=== PATIENT | male | born 1945 | race Caucasian/White ===

== ENCOUNTER 2018-07-09 12:25 | Inpatient (IN) | payer MEDICARE, MEDICAID ==
[~2018-07-09] VITALS: Ht 182.2 cm; Wt 100.8 kg
[2018-07-09 13:14] LABS: HEMATOCRIT 36.5 % (42.0-52.0); HEMOGLOBIN 11.8 g/dl (14.0-17.9); MEAN CORPUSCULAR HEMOGLOBIN 25.9 PG (27.0-31.0); MEAN CORPUSCULAR HGB CONC 32.3 % (33.0-36.5); MEAN PLATELET VOLUME 7.4 FL (7.4-10.4); PLATELET COUNT 305 X10'3 (140-440); RED BLOOD COUNT 4.56 X10'6 (4.70-6.10); RED CELL DISTRIBUTION WIDTH 17.4 % (11.5-14.5)
[2018-07-09 13:26] LABS: ALANINE AMINOTRANSFERASE 23 U/L (12-78); ALBUMIN 3.3 G/DL (3.4-5.0); ALBUMIN/GLOBULIN RATIO 0.9 (1.1-1.5); ALKALINE PHOSPHATASE 68 IU/L (46-116); ANION GAP 9 (8-16); ASPARTATE AMINO TRANSFERASE 15 U/L (10-37); BILIRUBIN,TOTAL 0.4 MG/DL (0.1-1.0); BLOOD UREA NITROGEN 21 MG/DL (7-18); BUN/CREATININE RATIO 29.2 (5.4-32.0); CALCIUM 8.9 MG/DL (8.5-10.1); CHLORIDE 101 MMOL/L (99-107); CREATININE 0.72 MG/DL (0.60-1.10); GLUCOSE 88 MG/DL (70-104); POTASSIUM 4.4 MMOL/L (3.5-5.1); SODIUM 140 MMOL/L (135-145); TOTAL CARBON DIOXIDE 30.4 MMOL/L (24-32); TOTAL PROTEIN 7.1 G/DL (6.4-8.2); eGFR > 90 ML/MIN
[2018-07-09 13:30] LABS: TROPONIN I < 0.04 NG/ML (0.0-0.05)
[2018-07-09 13:41] LABS: INR 1.1 INR; PARTIAL THROMBOPLASTIN TIME 33 SECONDS (22-32)
[2018-07-09] MEDS ORDERED: Potassium Cl inj 20 MEQ, magnesium sulf injection 2 GM, folic acid inj. 1 MG, thiamine ... IV ONE ×6 (13:47)
[2018-07-09 13:48] LABS: ANISOCYTOSIS 1+; PLATELET ESTIMATE NORMAL; TOTAL CELLS COUNTED 100
[2018-07-09] MEDS ORDERED: acetaminophen 325mg tablet PO PRN (14:00)
[2018-07-09] MEDS ORDERED: mag hydrox/Alum hydrox/simeth 30ml oral suspension PO PRN (14:00)
[2018-07-09] MEDS ORDERED: morphine 4 MG/ML inj SYRINge IV PRN ×2 (14:00)
[2018-07-09] MEDS ORDERED: ondansetron/PF 4mg/2ml inj IV PRN (14:00)
[2018-07-09] MEDS ORDERED: magnesium hydroxide 30ml (MOM) UD suspension PO PRN (14:00)
--- NOTE | 2018-07-09 14:03 | NUR ---
RELIEVING RN FOR LUNCH, PT IS RESTING QUIETLY ON GURNEY, ATTEMPTED IV X2, NO SUCCESS, ANOTHER RN TO TRY, ACCU CHECK 86
[2018-07-09] MEDS: normal saline 1000ml 1,000 ML IV SCH (14:30)
[2018-07-09 15:05] LABS: HEMOGLOBIN A1C 5.8 % (4.5-6.2)
[2018-07-09] MEDS ORDERED: ASCO500C15 PO (15:38)
[2018-07-09] MEDS ORDERED: VIT59LIQ PO (15:38)
[2018-07-09] MEDS ORDERED: FERR325T32 PO (15:38)
[2018-07-09] MEDS ORDERED: MELA5TAB12 PO (15:38)
[2018-07-09] MEDS ORDERED: CHOL100046 PO (15:38)
[2018-07-09] MEDS ORDERED: TRAZ-218 PO (16:12)
[2018-07-09] MEDS ORDERED: INSU100V12 SQ (16:12)
[2018-07-09] MEDS ORDERED: FISH12002 PO (16:12)
[2018-07-09] MEDS ORDERED: ALPR0.5T8 PO (16:12)
[2018-07-09] MEDS ORDERED: FAMO10TA41 PO (16:12)
[2018-07-09] MEDS ORDERED: TRAM50TA2 PO (16:12)
[2018-07-09] MEDS ORDERED: CETI10TA14 PO (16:12)
[2018-07-09] MEDS ORDERED: NAPR220T67 PO (16:12)
[2018-07-09] MEDS ORDERED: MULT1TAB74 PO (16:12)
[2018-07-09] MEDS ORDERED: ASPI-974 PO (16:12)
[2018-07-09] MEDS ORDERED: METF-438 PO (16:12)
[2018-07-09] MEDS ORDERED: METO-539 PO (16:12)
[2018-07-09] MEDS ORDERED: ALPR-384 PO (16:13)
[2018-07-09] MEDS ORDERED: AZEL6DRO6 EACHEYE (16:16)
[2018-07-09] MEDS ORDERED: BUDE10.2 INH (16:16)
--- NOTE | 2018-07-09 17:00 | NUR ---
Arrived to room 4011B from ED transfer for Stroke Alert. Pt reports his symptoms that he had yesterday have resolved now. IV RAC with NS @ 70/Hr. Tech here to perform bedside ECHO. at bedside.
[2018-07-09 17:20] VITALS: BP 145/81
[2018-07-09 18:00] VITALS: BP 145/81
[2018-07-09] MEDS ORDERED: MESSAGE TO PHARMACY PO ONE (18:00)
[2018-07-09] MEDS ORDERED: glucagon, human recombinant 1mg kit SUBCUT PRN (18:00)
[2018-07-09] MEDS ORDERED: dextrose ORAL solution 15 GM/59 ML bottle PO PRN ×2 (18:00)
[2018-07-09] MEDS ORDERED: insulin Lispro (HumaLOG) vial - multi-dose SQ SCH (18:00)
[2018-07-09] MEDS ORDERED: dextrose 50%-water 50ml dispensing syringe IV PRN ×2 (18:00)
--- NOTE | 2018-07-09 18:00 | NUR ---
Failed swallow test. NPO. Accucheck 64 at this time. TC placed to Dr. Chang and received orders for Hyper & Hypogycemia Protocol. Dextrose 50% 25 grams administered IV at 1815. Report given to REJI Sawyer.
[2018-07-09] MEDS: clopidogrel 75mg tablet PO SCH (20:34)
[2018-07-09] MEDS ORDERED: insulin glargine (Lantus) pen - multi-dose SQ SCH (21:00)
[2018-07-09 22:00] VITALS: BP 146/62
[2018-07-10 02:00] VITALS: BP 124/78
[2018-07-10] MEDS: normal saline 1000ml 1,000 ML IV SCH (04:14)
[2018-07-10 06:00] VITALS: BP 128/79
--- NOTE | 2018-07-10 06:00 | NUR ---
Patient in room ORTHO 4011. I have received report from REJI Sawyer and had the opportunity to ask questions and assume patient care.
[2018-07-10 06:32] LABS: ALBUMIN 2.9 G/DL (3.4-5.0); ANION GAP 11 (8-16); BLOOD UREA NITROGEN 16 MG/DL (7-18); BUN/CREATININE RATIO 24.2 (5.4-32.0); CALCIUM 8.3 MG/DL (8.5-10.1); CHLORIDE 104 MMOL/L (99-107); CHOL/HDL RATIO 3.7 (0.00-4.99); CHOLESTEROL 108 MG/DL (0-200); CREATININE 0.66 MG/DL (0.60-1.10); GLUCOSE 99 MG/DL (70-104); HDL CHOLESTEROL 29 MG/DL (35-60); LDL CHOLESTEROL 64 MG/DL (50-100); POTASSIUM 3.7 MMOL/L (3.5-5.1); SODIUM 141 MMOL/L (135-145); TOTAL CARBON DIOXIDE 25.8 MMOL/L (24-32); TRIGLYCERIDES 89 MG/DL (20-135); eGFR > 90 ML/MIN
--- NOTE | 2018-07-10 06:33 | NUR ---
REPORT GIVEN TO REJI RAMIREZ.
[2018-07-10 06:51] LABS: BASOPHILS % (AUTO) 0.1 % (0-1); EOSINOPHILS # (AUTO) 0.3 X10'3 (0-0.9); EOSINOPHILS % (AUTO) 4.6 % (0-6); HEMATOCRIT 35.2 % (42.0-52.0); HEMOGLOBIN 11.8 g/dl (14.0-17.9); LYMPHOCYTES # (AUTO) 2.2 X10'3 (1.1-4.8); LYMPHOCYTES % (AUTO) 31.1 % (21-51); MEAN CORPUSCULAR HEMOGLOBIN 26.4 PG (27.0-31.0); MEAN CORPUSCULAR HGB CONC 33.4 % (33.0-36.5); MONOCYTES # (AUTO) 0.7 X10'3 (0-0.9); MONOCYTES % (AUTO) 9.1 % (2-12); NEUTROPHILS % (AUTO) 55.1 % (42-75); PLATELET COUNT 255 X10'3 (140-440); RED BLOOD COUNT 4.46 X10'6 (4.70-6.10); RED CELL DISTRIBUTION WIDTH 17.3 % (11.5-14.5); WHITE BLOOD COUNT 7.2 X10'3 (4.5-11.0)
[2018-07-10] MEDS ORDERED: enoxaparin 40mg/0.4ml syringe SUBCUT SCH (08:00)
[2018-07-10] MEDS: clopidogrel 75mg tablet PO SCH (08:24)
[2018-07-10 10:00] VITALS: BP 116/94
== END 2018-07-10 12:00 | disposition home or self-care (01) | DRG 93 ==
LOC: ER 12:26 → ED HOLD 13:56 → ORTHO 4S 16:35
PROVIDERS: ADMIT Internal Medicine; ATTEND Internal Medicine
DX: R47.1 Dysarthria and anarthria (principal); E11.9 Type 2 diabetes mellitus without complications; I25.10 Atherosclerotic heart disease of native coronary artery without angina pectoris; J44.9 Chronic obstructive pulmonary disease, unspecified; F41.9 Anxiety disorder, unspecified; G47.00 Insomnia, unspecified; M19.90 Unspecified osteoarthritis, unspecified site; Z95.1 Presence of aortocoronary bypass graft; Z88.0 Allergy status to penicillin; Z79.4 Long term (current) use of insulin; Z79.82 Long term (current) use of aspirin; Z79.899 Other long term (current) drug therapy; Z87.891 Personal history of nicotine dependence; Z83.3 Family history of diabetes mellitus
CPT/HCPCS: 36415; 70450; 70544; 70551; 71045; 80048; 80053; 80061; 82948; 83036; 83880; 84484; 85025; 85610; 85730; 87070; 93005; 93306; 97161; 99285; G0378; J1650; J1815; J3411; J3475; J3480; J3490; J7030

== ENCOUNTER 2024-08-08 16:49 | Inpatient (IN) | payer MEDICARE, MEDICAID ==
[~2024-08-08] VITALS: Ht 182.9 cm; Wt 109.1 kg
[~2024-08-08 16:49] MED LIST: ALPR-384 PO; ASCO500C18 PO; ASPI-974 PO; AZEL6DRO6 EACHEYE; BUDE10.2 INH; CHOL100046 PO; FAMO10TA41 PO; FERR325T32 PO; FISH12002 PO; INSU100V12 SQ; MELA5TAB12 PO; METO-539 PO; MULT-620 PO; NAPR220T67 PO; TRAZ-251 PO; VIT59LIQ PO
[2024-08-08 17:59] LABS: BASOPHILS % (AUTO) 0.3 % (0-1); EOSINOPHILS # (AUTO) 0.2 X10'3 (0-0.9); EOSINOPHILS % (AUTO) 2.4 % (0-6); HEMATOCRIT 36.6 % (42.0-52.0); LYMPHOCYTES # (AUTO) 1.9 X10'3 (1.1-4.8); MEAN CORPUSCULAR HEMOGLOBIN 26.1 PG (27.0-31.0); MEAN CORPUSCULAR HGB CONC 32.7 g/dL (33.0-36.5); MEAN CORPUSCULAR VOLUME 79.7 FL (78-98); MEAN PLATELET VOLUME 8.1 FL (7.4-10.4); MONOCYTES # (AUTO) 0.7 X10'3 (0-0.9); MONOCYTES % (AUTO) 8.7 % (2-12); NEUTROPHILS # (AUTO) 5.1 X10'3 (1.8-7.7); NEUTROPHILS % (AUTO) 64.6 % (42-75); PLATELET COUNT 264 X10'3 (140-440); RED BLOOD COUNT 4.59 X10'6 (4.70-6.10); RED CELL DISTRIBUTION WIDTH 17.4 % (11.5-14.5); WHITE BLOOD COUNT 7.9 X10'3 (4.5-11.0)
[2024-08-08 18:12] LABS: ALANINE AMINOTRANSFERASE 20 U/L (12-78); ALBUMIN 3.8 G/DL (3.4-5.0); ALBUMIN/GLOBULIN RATIO 1.1 (1.1-1.5); ALKALINE PHOSPHATASE 75 IU/L (46-116); ANION GAP 11 (8-16); ASPARTATE AMINO TRANSFERASE 24 U/L (10-37); BILIRUBIN,TOTAL 0.7 MG/DL (0.1-1.0); BLOOD UREA NITROGEN 15 MG/DL (7-18); BUN/CREATININE RATIO 17.2 (10.0-20.0); CHLORIDE 107 MMOL/L (99-107); CREATININE 0.87 MG/DL (0.60-1.10); GLUCOSE 158 MG/DL (70-104); POTASSIUM 4.2 MMOL/L (3.5-5.1); SODIUM 142 MMOL/L (135-145); TOTAL CARBON DIOXIDE 24.5 MMOL/L (24-32); TOTAL PROTEIN 7.4 G/DL (6.4-8.2); eCRCL 79 ML/MIN; eGFR 85 ML/MIN
[2024-08-08 18:19] LABS: PRO BRAIN NATRIURETIC PEPTIDE 2498 PG/ML (0-450)
[2024-08-08 22:21] LABS: ETHANOL < 10 MG/DL (<10); MAGNESIUM 1.8 MG/DL (1.5-2.4)
[2024-08-08] MEDS ORDERED: magnesium Cl slow-release 64mg tablet PO PRN (22:30)
[2024-08-08] MEDS ORDERED: magnesium sulf-water 2g/50mL 50 ML IV PRN (22:30)
[2024-08-08] MEDS ORDERED: potassium Cl 20 mEq SR tablet PO PRN ×2 (22:30)
[2024-08-08] MEDS ORDERED: magnesium sulf-water 4G/100mL 100 ML IV PRN (22:30)
[2024-08-08] MEDS ORDERED: glucagon, human recombinant 1mg kit SUBCUT PRN (22:30)
[2024-08-08] MEDS ORDERED: magnesium hydroxide 30ml (MOM) UD suspension PO PRN (22:30)
[2024-08-08] MEDS ORDERED: DEXTROSE 15 GM of carb/4 tabs (each vial/BOTTLE has 4 tablets) PO PRN ×2 (22:30)
[2024-08-08] MEDS ORDERED: mag hydrox/Alum hydrox/simeth 30ml oral suspension PO PRN (22:30)
[2024-08-08] MEDS ORDERED: potassium Cl 40MEQ/1/2NS 520ml 520 ML IV PRN (22:30)
[2024-08-08] MEDS ORDERED: dextrose 50%-water 50ml dispensing syringe IV PRN ×2 (22:30)
[2024-08-08] MEDS ORDERED: acetaminophen 325mg tablet PO PRN (22:30)
[2024-08-08] MEDS ORDERED: ondansetron/PF 4mg/2ml inj IV PRN (22:30)
[2024-08-08] MEDS: diltiazem 5mg/ml 5ml inj. IV ONE (22:31)
[2024-08-08 22:37] LABS: APTT 28 SECONDS (22-32); INR 1.2 INR; PROTHROMBIN TIME 12.5 SECONDS (9.0-12.0)
[2024-08-08] MEDS: diltiazem-NS 100mg/100ml 100 ML IV PRN (22:43)
[2024-08-08 23:16] LABS: HEMOGLOBIN A1C 7.3 % (4.5-6.2)
[2024-08-08] MEDS: apixaban 5mg tablet PO SCH (23:21)
[2024-08-08] MEDS: metoprolol tartrate 50mg tablet PO SCH (23:22)
[2024-08-08] MEDS: furosemide 10 MG/1 ML 10ml inj IV ONE (23:25)
[2024-08-08 23:34] VITALS: PULSE 93; RESP 16; O2SAT 94
[2024-08-09 03:24] LABS: BASOPHILS % (AUTO) 0.3 % (0-1); EOSINOPHILS # (AUTO) 0.2 X10'3 (0-0.9); EOSINOPHILS % (AUTO) 2.2 % (0-6); HEMATOCRIT 35.6 % (42.0-52.0); HEMOGLOBIN 11.5 g/dl (14.0-17.9); LYMPHOCYTES # (AUTO) 1.6 X10'3 (1.1-4.8); LYMPHOCYTES % (AUTO) 17.5 % (21-51); MEAN CORPUSCULAR HEMOGLOBIN 25.7 PG (27.0-31.0); MEAN CORPUSCULAR HGB CONC 32.2 g/dL (33.0-36.5); MEAN CORPUSCULAR VOLUME 79.8 FL (78-98); MEAN PLATELET VOLUME 7.7 FL (7.4-10.4); NEUTROPHILS # (AUTO) 6.3 X10'3 (1.8-7.7); PLATELET COUNT 248 X10'3 (140-440); RED BLOOD COUNT 4.47 X10'6 (4.70-6.10); RED CELL DISTRIBUTION WIDTH 17.4 % (11.5-14.5); WHITE BLOOD COUNT 9.1 X10'3 (4.5-11.0)
[2024-08-09 03:40] LABS: ALBUMIN 3.4 G/DL (3.4-5.0); ANION GAP 9 (8-16); BLOOD UREA NITROGEN 15 MG/DL (7-18); CALCIUM 8.6 MG/DL (8.5-10.1); CHLORIDE 106 MMOL/L (99-107); CHOL/HDL RATIO 3.2 (0.00-4.99); CHOLESTEROL 126 MG/DL (0-200); CREATININE 0.88 MG/DL (0.60-1.10); GLUCOSE 152 MG/DL (70-104); HDL CHOLESTEROL 40 MG/DL (35-60); LDL CHOLESTEROL 69 MG/DL (50-100); POTASSIUM 3.8 MMOL/L (3.5-5.1); SODIUM 141 MMOL/L (135-145); TOTAL CARBON DIOXIDE 26.2 MMOL/L (24-32); TRIGLYCERIDES 53 MG/DL (20-135); eCRCL 78 ML/MIN; eGFR 84 ML/MIN
[2024-08-09] MEDS: INSULIN LISPRO 100 UNIT/ML INSULN.PEN MULTI-DOSE SQ SCH (07:00)
[2024-08-09] MEDS: K and/or MAG REPLACEMENT MC SCH (08:00)
[2024-08-09] MEDS: ipratropium/albuterol 3ml nebule NEB PRN (08:33)
[2024-08-09] MEDS: budesonide 0.5mg/2ml UD nebule IH SCH (08:33)
[2024-08-09] MEDS: furosemide 40mg/4ml inj IV SCH (08:34)
[2024-08-09 08:37] VITALS: PULSE 71; RESP 16; O2SAT 97
[2024-08-09 08:45] VITALS: PULSE 70; RESP 10
[2024-08-09 19:30] VITALS: PULSE 78; RESP 16; O2SAT 95
[2024-08-09 19:40] VITALS: PULSE 71; RESP 12
[2024-08-09] MEDS: insulin glargine (Lantus) pen - multi-dose SQ SCH (20:25)
[2024-08-09 23:50] VITALS: PULSE 69; RESP 16; O2SAT 97
[2024-08-09 23:58] VITALS: PULSE 68; RESP 12
[2024-08-10] VITALS (9 sets, daily range): BP systolic 135–146; BP diastolic 77–90; PULSE 66–84; RESP 12–24; TEMP 97.2–97.8; O2SAT 92–98
[2024-08-10 05:58] LABS: BASOPHILS % (AUTO) 0.2 % (0-1); EOSINOPHILS # (AUTO) 0.2 X10'3 (0-0.9); EOSINOPHILS % (AUTO) 2.5 % (0-6); HEMATOCRIT 38.5 % (42.0-52.0); HEMOGLOBIN 12.3 g/dl (14.0-17.9); LYMPHOCYTES % (AUTO) 35.6 % (21-51); MEAN CORPUSCULAR HEMOGLOBIN 25.2 PG (27.0-31.0); MEAN CORPUSCULAR HGB CONC 31.9 g/dL (33.0-36.5); MEAN CORPUSCULAR VOLUME 78.9 FL (78-98); MEAN PLATELET VOLUME 8.2 FL (7.4-10.4); MONOCYTES # (AUTO) 0.9 X10'3 (0-0.9); MONOCYTES % (AUTO) 10.8 % (2-12); NEUTROPHILS # (AUTO) 4.2 X10'3 (1.8-7.7); NEUTROPHILS % (AUTO) 50.9 % (42-75); PLATELET COUNT 300 X10'3 (140-440); RED BLOOD COUNT 4.87 X10'6 (4.70-6.10); RED CELL DISTRIBUTION WIDTH 17.2 % (11.5-14.5); WHITE BLOOD COUNT 8.3 X10'3 (4.5-11.0)
[2024-08-10 06:16] LABS: ALBUMIN 3.5 G/DL (3.4-5.0); ANION GAP 8 (8-16); BLOOD UREA NITROGEN 25 MG/DL (7-18); BUN/CREATININE RATIO 32.1 (10.0-20.0); CALCIUM 9.2 MG/DL (8.5-10.1); CHLORIDE 105 MMOL/L (99-107); CREATININE 0.78 MG/DL (0.60-1.10); GLUCOSE 130 MG/DL (70-104); POTASSIUM 4.4 MMOL/L (3.5-5.1); SODIUM 142 MMOL/L (135-145); TOTAL CARBON DIOXIDE 29.3 MMOL/L (24-32); eCRCL 88 ML/MIN; eGFR > 90 ML/MIN
[2024-08-10] MEDS: spironolactone 25 MG tablet PO SCH (08:46)
[2024-08-10] MEDS ORDERED: APIX5TAB3 PO ×2 (11:57→14:44)
[2024-08-10] MEDS ORDERED: EMPA10TA PO ×2 (11:57→14:44)
[2024-08-10] MEDS ORDERED: SPIR25TA PO ×2 (11:57→14:44)
[2024-08-10] MEDS ORDERED: METO50TA16 PO ×2 (11:57→14:44)
[2024-08-10] MEDS ORDERED: FURO-150 PO ×2 (11:57→14:44)
[2024-08-10] MEDS ORDERED: NAPR220T67 PO (13:59)
[2024-08-10] MEDS ORDERED: ASPI-974 PO (13:59)
[2024-08-10] MEDS ORDERED: METO-539 PO (13:59)
== END 2024-08-10 16:35 | disposition home or self-care (01) | DRG 291 ==
LOC: ER 16:50 → ED HOLD 22:33 → EDBEDREQ 08-09 23:36 → PCU 3S 08-09 23:59
PROVIDERS: ADMIT Internal Medicine Critical Care Medicine; ATTEND Internal Medicine
DX: I11.0 Hypertensive heart disease with heart failure (principal); I50.33 Acute on chronic diastolic (congestive) heart failure; I48.91 Unspecified atrial fibrillation; E11.9 Type 2 diabetes mellitus without complications; J44.9 Chronic obstructive pulmonary disease, unspecified; I25.10 Atherosclerotic heart disease of native coronary artery without angina pectoris; Z66 Do not resuscitate; E66.9 Obesity, unspecified; Z68.32 Body mass index [BMI] 32.0-32.9, adult; Z79.899 Other long term (current) drug therapy; Z95.1 Presence of aortocoronary bypass graft; Z88.0 Allergy status to penicillin; Z87.891 Personal history of nicotine dependence
CPT/HCPCS: 36415; 71045; 80048; 80053; 80061; 80320; 82948; 83036; 83735; 83880; 84484; 85025; 85610; 85730; 87081; 93005; 93306; 94640; 94760; 99291; A4615; A6258; G0378; J1815; J1940; J3490